=== PATIENT | male | born 1985 | race American Indian/Alaskan Native ===

== ENCOUNTER 2019-07-04 12:02 | Emergency (ER) | payer OTHER ==
[2019-07-04 12:38] LABS: BILIRUBIN,URINE NEGATIVE (NEGATIVE); GLUCOSE, URINE (UA) NEGATIVE (NEGATIVE); KETONES,URINE (UA) NEGATIVE (NEGATIVE); LEUKOCYTE ESTERASE, URINE NEGATIVE (NEGATIVE); NITRITE,URINE NEGATIVE (NEGATIVE); OCCULT BLOOD,URINE NEGATIVE (NEGATIVE); PH,URINE 6.5 PH (5.0-7.5); PROTEIN,URINE NEGATIVE (NEGATIVE); UROBILINOGEN,URINE 0.2 (NORMAL) E.U./dL (NORMAL)
[2019-07-04 12:40] LABS: CLARITY,URINE CLEAR (CLEAR)
[2019-07-04 12:59] LABS: BASOPHILS # (AUTO) 0.1 10^3/uL (0.0-0.1); BASOPHILS % (AUTO) 0.9 %; EOSINOPHILS % (AUTO) 0.3 %; HGB - HEMOGLOBIN 14.7 g/dL (14.0-18.0); LYMPHOCYTES # (AUTO) 1.6 10^3/uL (1.5-3.5); LYMPHOCYTES % (AUTO) 24.3 %; MEAN CORPUSCULAR HEMOGLOBIN 29.1 pg (27.0-31.0); MEAN CORPUSCULAR HGB CONC 34.1 g/dL (32.0-36.0); MEAN CORPUSCULAR VOLUME 85.2 fL (80.0-94.0); MEAN PLATELET VOLUME 8.9 fL (7.4-11.4); MONOCYTES # (AUTO) 0.5 10^3/uL (0.0-1.0); MONOCYTES % (AUTO) 7.9 %; NEUTROPHILS # (AUTO) 4.4 10^3/uL (1.5-6.6); NEUTROPHILS % (AUTO) 66.3 %; PLT - PLATELET COUNT 231 10^3/uL (130-450); RED BLOOD COUNT 5.06 10^6/uL (4.70-6.10); WHITE BLOOD COUNT 6.7 x10^3/uL (4.8-10.8)
[2019-07-04 13:12] LABS: ALBUMIN 5.3 g/dL (3.2-5.5); ALBUMIN/GLOBULIN RATIO 1.6 (1.0-2.2); BILIRUBIN,TOTAL 3.3 mg/dL (0.2-1.0); CALCIUM 9.9 mg/dL (8.5-10.3); CREATININE 1.1 mg/dL (0.6-1.2); TOTAL PROTEIN 8.6 g/dL (6.7-8.2)
--- NOTE | 2019-07-04 13:29 | ED Physician Documentation ---
PD HPI ABD PAIN - Stated complaint Stated Complaint: SIDE/ABD/BACK PX - Chief complaint Chief Complaint: Abd Pain - History obtained from History obtained from: Patient - History of Present Illness Timing - onset: How many days ago Timing - duration: Days (Patient has had a week or 2 of intermittent pains with eating in the right upper quadrant and epigastric area. This been more consistent over the last 3 to 4 days. He was seen by his primary care and prescribed pantoprazole which he is taken for 3 days now. He has not noticed an improvement. The pain is in the right upper quadrant and epigastric area and worse with eating. He has not tried other medicines. He has noticed some light brown and floating stools. He has changed to diet for more fruits and vegetable s and higher fiber and away from greasy and fatty foods over the last week. He has noticed a little bit of weight loss over the week as well. He has not had any blood or melena in his stool.) Quality: Cramping, Aching Location: RUQ, Epigastric Radiation: Right flank Improved by: Laying still. No: BM Worsened by: Eating, Moving, Palpation. No: Breathing Associated symptoms: Nausea, Loss of appetite, Weight loss. No: Fever, Vomiting, Diarrhea, Constipation, Melena, Dysuria Similar symptoms before: Has not had sx before Recently seen: Clinic (several days ago with Rx Pantoprazole.) Review of Systems Constitutional: reports: Fatigue. denies: Fever, Chills, Myalgias Nose: denies: Rhinorrhea / runny nose, Congestion Throat: denies: Sore throat Respiratory: denies: Dyspnea GI: reports: Abdominal Pain, Nausea. denies: Abdominal Swelling, Vomiting, D iarrhea : denies: Dysuria, Frequency Musculoskeletal: denies: Neck pain Neurologic: denies: Generalized weakness, Focal weakness, Numbness PD PAST MEDICAL HISTORY - Past Medical History Cardiovascular: None Respiratory: None Neuro: None GI: None - Present Medications Home Medications: Ambulatory Orders Medication Instructions Recorded Confirmed Lidocaine Viscous 2% [Xylocaine 5 ml PO Q4H PRN #100 ml 07/04/19 Viscous 2%] Sucralfate [Carafate] 1 gm PO ACHS #60 tablet 07/04/19 - Allergies Allergies/Adverse Reactions: Allergies Allergy/AdvReac Type Severity Reaction Status Date / Time No Known Drug Allergies Allergy Verified 07/04/19 12:16 PD ED PE NORMAL - Vitals Vital signs reviewed: Yes - General General: Alert and oriented X 3, No acute distress, Well developed/nourished - HEENT HEENT: PERRL (nonicteric), Moist mucous membranes, Pharynx benign - Neck Neck: Supple, no meningeal sign, No adenopathy - Cardiac Cardiac: RRR, No murmur - Respiratory Respiratory: Clear bilaterally - Abdomen Abdomen: Normal bowel sounds, Soft, Non distended, No organomegaly, Other (Tender in the epigastric and right upper quadrant area with mild guarding. There is no percussion or rebound tenderness. There is no referred tenderness from the rest of the abdomen. There is no CVA tenderness. Bowel sounds are present and normally active. He does not hurt more with deep breathing.) Results - Vitals Vitals: Vital Signs - 24 hr 07/04/19 07/04/19 12:16 16:26 Temperature 36.8 C 36.5 C Heart Rate 85 58 L Respiratory 16 12 Rate Blood Pressure 127/66 136/89 H O2 Saturation 100 99 Oxygen O2 Source Room air - Labs Labs: Laboratory Tests 07/04/19 07/04/19 07/04/19 12:31 12:50 12:50 WBC 6.7 RBC 5.06 Hgb 14.7 Hct 43.1 MCV 85.2 MCH 29.1 MCHC 34.1 RDW 12.0 Plt Count 231 MPV 8.9 Neut # (Auto) 4.4 Lymph # (Auto) 1.6 [place] # (Auto) 0.5 Eos # (Auto) 0.0 Baso # (Auto) 0.1 Absolute Nucleated RBC 0.00 Nucleated RBC % 0.0 Sodium 138 Potassium 4.0 Chloride 99 L Carbon Dioxide 29 Anion Gap 10.0 BUN 9 Creatinine 1.1 Estimated GFR (MDRD) 77 L Glucose 91 Calcium 9.9 Total Bilirubin 3.3 H Direct Bilirubin Indirect Bilirubin AST 17 ALT 16 Alkaline Phosphatase 114 Total Protein 8.6 H Albumin 5.3 Globulin 3.3 Albumin/Globulin Ratio 1.6 Lipase 32 Urine Color LIGHT YELLOW Urine Clarity CLEAR Urine pH 6.5 Ur Specific [place] <=1.005 Urine Protein NEGATIVE Urine Glucose (UA) NEGATIVE Urine Ketones NEGATIVE Urine Occult Blood NEGATIVE Urine Nitrite NEGATIVE Urine Bilirubin NEGATIVE Urine Urobilinogen 0.2 (NORMAL) Ur Leukocyte Esterase NEGATIVE Ur Microscopic Review NOT INDICATED Urine Culture Comments NOT INDICATED 07/04/19 15:00 WBC RBC Hgb Hct MCV MCH MCHC RDW Plt Count MPV Neut # (Auto) Lymph # (Auto) [place] # (Auto) Eos # (Auto) Baso # (Auto) Absolute Nucleated RBC Nucleated RBC % Sodium Potassium Chloride Carbon Dioxide Anion Gap BUN Creatinine Estimated GFR (MDRD) Glucose Calcium Total Bilirubin 3.4 H Direct Bilirubin 0.2 Indirect Bilirubin 3.2 AST ALT Alkaline Phosphatase Total Protein Albumin Globulin Albumin/Globulin Ratio Lipase Urine Color Urine Clarity Urine pH Ur Specific [place] Urine Protein Urine Glucose (UA) Urine Ketones Urine Occult Blood Urine Nitrite Urine Bilirubin Urine Urobilinogen Ur Leukocyte Esterase Ur Microscopic Review Urine Culture Comments - Rads (name of study) RUQ abd U/S Radiology: Prelim report reviewed, See rad report PD MEDICAL DECISION MAKING - ED course Complexity details: reviewed results, considered differential (Initially being treated for ulcer/gastritis with pantoprazole. However he is continued to have pain with eating so consider pancreatic or bile duct or gallbladder as well. We will get labs and ultrasound to look for other problems.), d/w patient Departure - Departure Disposition: Home, Self Care Clinical Impression: Epigastric abdominal pain, Elevated bilirubin Gastritis Qualifiers: Gastritis type: unspecified gastritis Chronicity: acute Gastritis bleeding: without bleeding Qualified Code(s): K29.00 - Acute gastritis without bleeding Condition: Stable Record reviewed to determine appropriate education?: Yes Instructions: ED PUD Vs Gastritis Follow-Up: [facility] [Provider Group] Prescriptions: Lidocaine Viscous 2% [Xylocaine Viscous 2%] 5 ml PO Q4H PRN #100 ml PRN Reason: Pain Sucralfate [Carafate] 1 gm PO ACHS #60 tablet Comments: I made copies of your blood tests and ultrasound report. He did have an isolated elevated unconjugated bilirubin. This would possibly suggest an inherited metabolic problem though you can get it rechecked again to see if it is coming down okay. The rest of your liver enzymes and pancreatic enzymes are normal. Your ultrasound did not show any acute inflammatory process in the bile duct pancreatic duct or gallbladder. At this point I would assume some inflammation of the stomach and duodenum. Continue the pantoprazole you have been prescribed. Add sucralfate to coat the stomach and duodenum. To that add antacid such as Maalox or Mylanta combined with lidocaine to help with stomach pains. Continue more low-fat and spicy foods as you have been doing. Follow-up with your primary care later next week for recheck, call Saturday for an appointment. Discharge Date/Time: 07/04/19 16:35
[2019-07-04] MEDS ORDERED: MAG HYDROX/AL HYDROX/SIMETH 30 ML UDC PO STA (13:51)
[2019-07-04] MEDS ORDERED: LIDOCAINE VISCOUS 2% 15 ML UDC MM STA (13:51)
[2019-07-04] MEDS ORDERED: FAMOTIDINE 20 MG TABLET PO STA (13:52)
--- NOTE | 2019-07-04 15:08 | Ultrasound Report ---
Reason: RUQ pain with eating for weeks Procedure Date: 07/04/2019 Accession Number: [id number] / [id number] Procedure: US - Abdomen Limited CPT Code: Final Report FULL RESULT: EXAM: ABDOMEN ULTRASOUND LIMITED, RUQ EXAM DATE: 07/04/2019 02:38 PM. CLINICAL HISTORY: Postprandial right upper quadrant pain for 2 weeks but worse today. COMPARISON: None. TECHNIQUE: Real-time scanning was performed with static images obtained. FINDINGS: LIVER: Normal in size but increased in echogenicity. There are a few tiny echogenic foci is scattered throughout the liver. No suspicious hepatic masses identified. The liver surface is smooth. PORTAL VEIN: Patent with hepatopedal flow. BILIARY: The common bile duct is normal in caliber. No intrahepatic biliary dilatation. GALLBLADDER: Question sludge in the gallbladder. No gallstones, gallbladder wall thickening or pericholecystic fluid. RIGHT KIDNEY: Normal in size without hydronephrosis, large shadowing stones or perinephric fluid collections. PANCREAS: The visualized portions of the pancreas are unremarkable. IVC: The visualized portions of the inferior vena cava are unremarkable. AORTA: The visualized aorta is normal in caliber. ASCITES: No significant free fluid. Measurements: Liver: 15 cm Gallbladder wall thickness: 2 mm Common bile duct: 3 mm Right kidney: 11.4 cm IMPRESSION: 1. No gallstones. No ultrasound evidence of acute cholecystitis. 2. Echogenic liver with several scattered tiny echogenic foci. Findings are nonspecific. Differential includes fatty infiltration versus medical liver disease/hepatitis. Recommend clinical correlation. [facility]
[2019-07-04 15:19] LABS: BILIRUBIN,DIRECT 0.2 mg/dL (0.1-0.5); BILIRUBIN,INDIRECT 3.2 mg/dL; BILIRUBIN,TOTAL 3.4 mg/dL (0.2-1.0)
[2019-07-04 16:27] VITALS: BP 136/89
== END 2019-07-04 16:35 | disposition home or self-care (01) ==
LOC: ED 12:02
DX: K29.00 Acute gastritis without bleeding (principal); R79.89 Other specified abnormal findings of blood chemistry
CPT/HCPCS: 36415; 76705; 80053; 81003; 82247; 82248; 83690; 85025; 99284; A9270; 81001; 87086